=== PATIENT | female | born 1990 | race Caucasian/White ===

== ENCOUNTER 2016-09-10 20:28 | Emergency (ER) | payer BC ==
[~2016-09-10] VITALS: Ht 162.6 cm; Wt 54.4 kg
[2016-09-10] MEDS ORDERED: IV NS 0.9% 1,000 ML BAG IV ONE (21:00)
[2016-09-10] MEDS ORDERED: ACETAMINOPHEN ES 500 MG TABLET PO ONE (21:00)
--- NOTE | 2016-09-10 21:00 | NUR ---
PT BIB MOTHER C/O FEVER, CHILLS, BODY ACHES, HEADACHE, NONPRODUCTIVE COUGH SINCE WEDNESDAY. RESP EVEN UNLABORED, HOWEVER PT REPORTS SOB. SKIN WARM, MOIST. AMBULATORY WITH STEADY GAIT. IN ER BED 20.
[2016-09-10] MEDS ORDERED: IV SET PRIMARY 1 EA INFUS.SET MC ONE (21:02)
[2016-09-10] MEDS ORDERED: ACETAMINOPHEN ES 500 MG TABLET ONE (21:02)
[2016-09-10] MEDS ORDERED: IV NS 0.9% 1,000 ML ONE (21:02)
--- NOTE | 2016-09-10 22:26 | NUR ---
Patient discharged to home in stable condition. Written and verbal after care instructions given. Patient verbalizes understanding of instruction. IV removed. Catheter intact and site benign. Pressure and 4x4 applied to site. No bleeding noted. AMBULATORY WITH STEADY GAIT.
[2016-09-10 22:27] VITALS: BP 116/81
== END 2016-09-10 22:28 | disposition home or self-care (01) ==
LOC: ER 20:32
DX: J11.1 Influenza due to unidentified influenza virus with other respiratory manifestations (principal); H92.03 Otalgia, bilateral; Z88.1 Allergy status to other antibiotic agents; Z88.8 Allergy status to other drugs, medicaments and biological substances
CPT/HCPCS: 87804 ×2; 99284; A4606; J7030; Z7610; 87400

== ENCOUNTER 2017-07-20 20:18 | Emergency (ER) | payer BC ==
[~2017-07-20] VITALS: Ht 154.9 cm; Wt 54.4 kg
--- NOTE | 2017-07-20 20:25 | NUR ---
"STARTED HAVING CP/DIZZINESS/SOB AFTER SHOWER", APPEARS ANXIOUS, NAD NOTED, VSS, RESP EVEN AND UNLABORED. PT PUT ON MONITOR, WAITING FOR MD SIMENTAL.
[2017-07-20 20:58] LABS: BASOPHILS # (AUTO) 0.1 /CMM (0.0-0.2); BASOPHILS % (AUTO) 0.8 % (0.0-2.0); EOSINOPHILS # (AUTO) 0.3 /CMM (0.0-0.7); EOSINOPHILS % (AUTO) 3.8 % (0.0-6.0); HEMATOCRIT 42 % (33-45); HEMOGLOBIN 14.2 g/dL (11.5-14.8); LYMPHOCYTES # (AUTO) 2.7 /CMM (0.8-4.8); LYMPHOCYTES % (AUTO) 31.2 % (20.0-44.0); MEAN CORPUSCULAR HEMOGLOBIN 30 PG (26.0-33.0); MEAN CORPUSCULAR HGB CONC 34 g/dl (31.0-36.0); MEAN CORPUSCULAR VOLUME 89 fL (82-100); MONOCYTES # (AUTO) 0.6 /CMM (0.1-1.30); MONOCYTES % (AUTO) 6.4 % (2.0-12.0); NEUTROPHILS % (AUTO) 57.8 % (43.0-81.0); PLATELET COUNT (AUTO) 280 /CMM (150-450); RDW COEFFICIENT OF VARIATION 12.6 (11.5-15.0); WHITE BLOOD COUNT (AUTO) 8.7 K/uL (4.3-11.0)
[2017-07-20] MEDS ORDERED: IV NS 0.9% 1,000 ML BAG IV ONE (21:00)
[2017-07-20 21:07] LABS: CREATININE 0.6 mg/dL (0.6-1.3); POTASSIUM 3.5 mmol/L (3.5-5.1)
[2017-07-20 21:12] LABS: INR 0.96 (0.85-1.15)
[2017-07-20 21:21] LABS: APPEARANCE,URINE Clear (CLEAR); BILIRUBIN,URINE SMALL (NEGATIVE); BLOOD, URINE Negative Ery/uL (NEGATIVE); COLOR,URINE Yellow (YELLOW); KETONES,URINE Trace (NEGATIVE); LEUKOCYTE ESTERASE ,URINE Negative (NEGATIVE); NITRITE, URINE Negative (NEGATIVE); PH,URINE 7.5 (5.0-8.0); PROTEIN,URINE 30 mg/dl (NEGATIVE); UGLUCOSE Negative (NEGATIVE); UROBILINOGEN,URINE 0.2 EU/dL (0.2)
[2017-07-20 21:38] LABS: BACTERIA,URINE Few /HPF (None Seen); MUCUS,URINE Rare /LPF (None Seen); RBC,URINE 0-2 /HPF (0-2); SQUAMOUS EPITHELIAL CELL,UR Moderate /HPF (None Seen); WBC,URINE 0-2 /HPF (0-3)
--- NOTE | 2017-07-20 22:04 | NUR ---
Patient discharged to home in stable condition. Written and verbal after care instructions given. Patient verbalizes understanding of instruction. IV removed. Catheter intact and site benign. Pressure and 4x4 applied to site. No bleeding noted.
[2017-07-20 22:07] VITALS: BP 114/69
== END 2017-07-20 22:09 | disposition home or self-care (01) ==
LOC: ER 20:22
DX: R06.02 Shortness of breath (principal); Z88.1 Allergy status to other antibiotic agents
CPT/HCPCS: 36415; 80048; 81001; 84703; 85025; 85378; 85730; 93005; 96360; 99285; A4606 ×2; J7030; Z7610 ×2; 81000-TC